=== PATIENT | female | born 1990 | race Caucasian/White ===

== ENCOUNTER 2018-05-13 21:20 | Emergency (ER) | payer OTHER, SELFPAY ==
[2018-05-13 21:25] VITALS: BP 125/78; PULSE 85; RESP 16; TEMP 36.9; O2SAT 97
--- NOTE | 2018-05-13 21:27 | DI.RAD.S_ITS ---
PROCEDURE: XR FINGER RT MIN 2V INDICATIONS: shut 2nd digit in car door TECHNIQUE: AP hand, 2 views of the right second finger(s) acquired. COMPARISON: None. FINDINGS: Bones: There is a comminuted, displaced fracture of the distal aspect of the distal phalanx of the right second digit. Soft tissues: No suspicious soft tissue calcifications. IMPRESSION: Right second digit distal phalangeal fracture. Dictated by: Abi Fan M.D. on 05/13/2018 at 21:55 Approved by: Abi Fan M.D. on 05/13/2018 at 21:56
[2018-05-13] MEDS: TET,DIPH,PERTUSS(ACELL),VAC/PF 0.5 ML SYRINGE IM (21:40)
--- NOTE | 2018-05-13 21:58 | ED.UPPEXIN ---
HPI - Extremity Injury (Upper) General Chief Complaint: Extremity Injury, Upper Stated Complaint: RT INDEX FINGER INJURY Time Seen by Provider: 05/13/18 21:47 Source: patient Mode of arrival: ambulatory Limitations: no limitations History of Present Illness HPI narrative: 27-year-old [id number] female here for evaluation an injury to the end of her right index finger. She states that a couple days ago she smashed it in a car door. He has had pain since then. Related Data Allergies Allergy/AdvReac Type Severity Reaction Status Date / Time promethazine [From Phenergan] Allergy Verified 05/13/18 21:27 Review of Systems Musculoskeletal Comments: Pain at the end of her right index finger Integumentary/Breasts Comments: Bruising around the end of her right index finger Neurologic Comments: Tingling and pain to the touch that of the right index finger Hematologic/Lymphatic Denies easy bleeding and Denies easy bruising PFSH Medical History Healthy adult (Acute) Social History marital status: Social History marital status: Exam Initial Vital Signs Initial Vital Signs: Vital Signs Temperature 98.5 F 05/13/18 21:25 Pulse Rate 85 05/13/18 21:25 Respiratory Rate 16 05/13/18 21:25 Blood Pressure 125/78 05/13/18 21:25 Pulse Oximetry 97 05/13/18 21:25 Const General: cooperative, healthy appearing, well developed, well groomed and No acute distress Orientation: alert, awake and oriented x3 Cardio Pulses: radial pulses present on the right Skin Other: Bruising on the pad and the dorsum of the right index finger from the D IP joint distal. Neuro Other: Sensation intact to light touch to the end of the right index finger Extrem Other: Limited range of motion at the PIP joint of the right index finger. Full range of motion at the PIP joint and MCP joint. Procedures Orthopedic Splinting/Casting Injury #1: Side: right Upper Extremity Injury Location: finger Upper Extremity Immobilizer: aluminum form splint Post splinting neuro exam: intact Post splinting vascular exam: intact Placed by: Nursing Course Orders Ordered: ED Orders 05/13/18 21:27 XR finger RT min 2V Stat Discontinued Medications Diphtheria/Tetanus/Acell Pertussis (Adacel) 0.5 ml IM .ONCE ONE Stop: 05/13/18 21:40 Last Admin: 05/13/18 21:40 Dose: 0.5 ml Vital Signs - 8 hr 05/13/18 21:25 Temperature 98.5 F Pulse Rate 85 Respiratory Rate 16 Blood Pressure 125/78 Pulse Oximetry 97 MDM - Extremity Injury (Upper) Imaging Data X-ray finger: Radiologist's impression: [address] [address] XRay Report Signed Patient: RAINER AGUIAR RMR#: [id number] : 1990Acct:[id number] Age/Sex: 27 / FDate of Service: 05/13/18 Loc: ED Accession Number: [id number] Procedure: XR finger RT min 2V Ordering Provider: Ok Manriquez D.O. PROCEDURE: XR FINGER RT MIN 2V INDICATIONS: shut 2nd digit in car door TECHNIQUE: AP hand, 2 views of the right second finger(s) acquired. COMPARISON: None. FINDINGS: Bones: There is a comminuted, displaced fracture of the distal aspect of the distal phalanx of the right second digit. Soft tissues: No suspicious soft tissue calcifications. IMPRESSION: Right second digit distal phalangeal fracture. Dictated by: Abi Fan M.D. on 05/13/2018 at 21:55 Approved by: Abi Fan M.D. on 05/13/2018 at 21:56 [facility] Narrative Medical decision making narrative: Patient is neurovascularly intact. Does have a tuft fracture of the right index finger. No nail injury but does have a subungual hematoma. Patient was given care instructions. A splint was placed. She expressed understanding and agreement with plan. Discharge Plan Departure Patient Disposition: Home Clinical Impression: Finger fracture, right Qualifiers: Encounter type: initial encounter Finger: index finger Fracture type: closed Phalanx: distal Fracture alignment: nondisplaced Qualified Code(s): S62.660A - Nondisplaced fracture of distal phalanx of right index finger, initial encounter for closed fracture Instructions: DI for Finger Fracture Activity Restrictions/Additional Instructions: You did break the very end of your index finger. Keep the splint on as much as possible. This will potentially be sore for the next 4-6 weeks. Contact your primary care doctor for a follow-up.
== END 2018-05-13 22:24 | disposition home or self-care (01) ==
PROVIDERS: Emergency Provider Emergency Medicine
DX: S62.660A Nondisplaced fracture of distal phalanx of right index finger, initial encounter for closed fracture (principal); V48.3XXA Unspecified car occupant injured in noncollision transport accident in nontraffic accident, initial encounter; Z23 Encounter for immunization
CPT/HCPCS: 29130; 73140; 90471; 99282; 99283; 90715